=== PATIENT | female | born 1970 | race Caucasian/White ===

== ENCOUNTER 2022-05-03 08:09 | Outpatient (CLI) | payer OTHER, SELFPAY ==
--- NOTE | 2022-05-03 08:15 | CRLHL7_ITS ---
For Patients: As a result of the Century Cures Act, medical imaging exams and procedure reports are released immediately into your electronic medical record. You may view this report before your referring provider. If you have questions, please contact your health care provider. Technique: Double-contrast esophagram performed after the uneventful administration of effervescent crystals and thick barium followed by thin barium. Fluoroscopy time 57 seconds. Indication: Eosinophilic esophagitis Comparison: None. Findings: A small sliding hiatal hernia is present with spontaneous reflux to the midesophagus. No stricture or ulcer. Normal swallowing mechanism. Normal motility. There is the faint suggestion of slight concentric ring formation within the esophageal mucosa corresponding to the patient`s history of eosinophilic esophagitis. Impression: Small sliding hiatal hernia with spontaneous reflux. Faint suggestion of mild eosinophilic esophagitis corresponding to the known history. Dictated by Burke Ivy MD @ 05/03/2022 10:55:47 AM (Electronically Signed)
== END 2022-05-03 08:10 | disposition home or self-care (01) ==
PROVIDERS: PCP Student in an Organized Health Care Education/Training Program; Visit Provider Student in an Organized Health Care Education/Training Program
DX: K20.0 Eosinophilic esophagitis (principal); K44.9 Diaphragmatic hernia without obstruction or gangrene
CPT/HCPCS: 74221

== ENCOUNTER 2022-05-09 09:04 | Outpatient (CLI) | payer OTHER, SELFPAY ==
--- NOTE | 2022-05-09 09:15 | CRLHL7_ITS ---
For Patients: As a result of the Century Cures Act, medical imaging exams and procedure reports are released immediately into your electronic medical record. You may view this report before your referring provider. If you have questions, please contact your health care provider. INDICATION: Eosinophilic esophagitis, dysphagia TECHNIQUE: Modified barium swallow, fluoroscopic time 1 minute 7 seconds. COMPARISON: Esophagram 05/03/2022 FINDINGS/IMPRESSION: Anatomical structures are normal. Swallowing mechanism appears within normal limits. No episodes of penetration or aspiration. No significant findings. Dictated by Burke Ivy MD @ 05/09/2022 11:10:59 AM (Electronically Signed)
== END 2022-05-09 09:05 | disposition home or self-care (01) ==
LOC: RAD 09:04
PROVIDERS: PCP Student in an Organized Health Care Education/Training Program; Visit Provider Student in an Organized Health Care Education/Training Program
DX: R13.10 Dysphagia, unspecified (principal); K20.0 Eosinophilic esophagitis
CPT/HCPCS: 74230; 92611

== ENCOUNTER 2024-04-17 16:35 | Emergency (ER) | payer OTHER, SELFPAY ==
--- OUTSIDE RECORDS SUMMARY | 2024-04-17 16:38 | XMS_ITS | Continuity of Care Document ---
Author Organization [facility] Address [address] [facility] [address] [place] [id number] Phone Care Team Providers Care Lock Plater Name Role Phone KETAN ESPOSITO MD Unavailable Unavailable Allergies, Adverse Reactions, Alerts Substance Reaction Status Criticality No Known Allergies Active No Inform ation Medications Medication Instructions Dosage Effective Dates (start - stop) Status Comments Synthroid 100 mcg tablet take 1 tablet by oral route every day 100 MCG - Active 28 mg iron-800 mcg tablet - Active Procedures Procedure Date EXCISION OF CHALAZION-SINGLE FOCUSED NEW PATIENT Advance Directives Directive Yes / No Effective Date File Name No Information Encounters Encounter Description Practice Location Reason(s) For Visit Diagnoses Date Provider Providers Copied on Encounter [facility], [address], [id number], [place] tel:[phone] [facility] No Information [facility]. [address] [place] [address] [place] [address], [id number] . tel:[phone] Referring Provider: KETAN Owens MD, [address] [place] [address] [place] [address], [id number] . tel:[phone] FOCUSED NEW PATIENT [facility], [address], [id number], tel:[phone] [facility] a consultation (chief complaint) Chalazion left lower eyelid [facility]. [address] [facility], [address], [place], [place], [id number] . tel:[phone] Referring Provider: TOMY FRANCIS MD, [address], [place], [address]. tel:[phone] Family History Family Member Type Diagnosis Age At Onset No Information Payers Payer name Insurance type Covered green party ID Authoriza tiedita(s) [facility] EXEMPT [id number] Social History Type Description Quantity Date Captured Comments Sex Female Smoking Status No Information Chief Complaint And Reason For Visit No Information Reason For Referral Reason For Referral No Information History Of Present Illness Encounter Date Complaint History Of Prese nt Illness a consultation The 45 year old female presents for a consultation, Hordeolum externum of LLL. Pt. is referred here by Dr. Condon, [facility], for a raised bump on LLL. She complains it has been there for over 4 months and has tried everything to get it to shrink. Pt. is concerned. Denies pain and discharge. Slight tenderness when touched. Pt. is 30 weeks . Functional Status Date Functional Assessmen t No Information Instructions Date Instruction Additional Infor mation No Information Assessments Type Assessment Date No Information Patient Care Teams Name Effective Dates (start - stop) Status Members No Information
--- OUTSIDE RECORDS SUMMARY | 2024-04-17 16:38 | XMS_ITS | Continuity of Care Document ---
Author Organization Replaced By [facility] Address [facility] [facility] [address] [place] [address] Phone Care Team Providers Care Technical Writer And Editor Name Role Phone [facility] Unavailable Suzanne vailable Procedures Procedure Date EXCISION OF CHALAZION-SINGLE Advance Directives Directive Yes / No Effective Date File Name No Information Encounters Encounter Description Practice Location Reason(s) For Visit Diagnoses Date Provider Providers Copied on Encounter Replaced By [facility] [place], [address] [place] [address] [place] [address], [id number], tel:[phone] Replaced By [facility] [place] No Information [facility]. [address] [place] [address], [address] [place] [address], [id number]. tel:[phone] Referring Provider: KETAN Owens MD, [address] [place] [address] [address] [place] [address], [id number]. tel:[phone] Family History Family Member Type Diagnosis Age At Onset No Information Payers Payer name Insurance type Covered democrat ID Authoriza ti(s) [facility] [facility] EXEMPT [id number] Social History Type Description Quantity Date Captured Comments Sex Female Smoking Status No Information Chief Complaint And Reason For Visit No Information Reason For Referral Reason For Referral No Information History Of Present Illness Encounter Date Complaint History Of Prese nt Illness No Information Functional Status Date Functional Assessmen t No Information Instructions Date Instruction Additional Infor mation No Information Assessments Type Assessment Date No Information Patient Care Teams Name Effective Dates (start - stop) Status Members No Information
--- OUTSIDE RECORDS SUMMARY | 2024-04-17 16:38 | XMS_ITS | Clinical Summary ---
Author Organization [employer] [facility] Address [address] [place] [address] Care Team Providers Care Supervisor Home Energy Consultant Name Role Phone Mica Parker DO Primary Care Provider [phone] Allergies No known active allergies Medications fluticasone (50 mcg per actuation) nasal solution (FLONASE)Indicat ions:Seasonal allergic rhinitis due to pollen,Nasal congestion Inhale 2 Sprays into both nostrils once daily. 1 Bottle 0 Active miscellaneous medical supply (Blood Pressure Cuff) miscIndications: Elevated BP without diagnosis of hypertension Home blood pressure monitor 1 Each 4 Active levothyroxine (SYNTHROID) 88 mcg tabletIndication s:Noemí's thyroiditis TAKE 1 TABLET DAILY 90 Tablet 2 4 Active pantoprazole (PROTONIX) 40 mg delayed-release tabletIndication s:Eosinophilic esophagitis,Clemencia roesophageal reflux disease, unspecified whether esophagitis present TAKE 1 TABLET DAILY 90 Tablet 3 4 Active Additional Information Patient taking differently:40 mg Oral DAILY,prn, Reported on 02/02/2024 Active Problems Problem Noted Date Diagnosed Date Pap smear of cervix with ASCUS, cannot exclude H GSIL 01/06/2024 Overview (02/11/2024): 09/2017 NIL/HPV negative Hx of ASCUS noted in 2021, unable to find further info At 2022 Pap flowsheet data: Abnormal Pap or Filer Bx in last 5 years No 11/2022 UNS/HPV negative 12/2023 ASC-H/HPV negative 01/2024 colp ECC negative. 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 Rx'd imitrex nasal spray 5mg at onset of BASHIR and may repeat once in 2 hours if needed. Max 40mg/day. Contact provider if more than 1 BASHIR per week and will do neuro consult. Other abnormalities in shape or position of gravid uterus and of neighboring structures, 06/19/2021 Raynaud's syndrome 06/19/2021 Disease due to severe acute respiratory syndrome coronavirus 2 (SARS-CoV-2) 11/06/2020 Hx of diabetes mellitus 10/17/2017 Eosinophilic esophagitis 06/20/2015 Hypothyroidism 09/10/2013 Abdominal pain, epigastric 09/10/2013 Overview (06/10/2018): Overview: mild discomfort Encounters Date Type Department Care Team Description 02/02/2024 10:50 AM DANCE ENTERTAINER Procedure Only [facility] [address] [place] [address] Mica Parker, Procedure (colposcopy) 02/02/2024 Travel 01/28/2024 Travel from Last 3 Months Immunizations Name Administration Dates Next Due Td (Age >=7 Years) 06/24/2013 Tdap 06/24/2013 Zoster (Shingrix-RZV, recombinant) 12/30/2023 Family History Medical History Relation Name Comments Fibromyalgia Daughter 5 Unknown Daughter 5 Cancer-prostate Father Mac Diabetes Father Mac Hypertension Father Mac Unknown Half-Sister 1 Unknown Half-Sister 2 Emphysema Mother yamile smoker Hypertension Mother yamile Thyroid Disease Sister 1 Rebekah-twin Good Health Sister 2 Kena Unknown Son 2 Cancer-breast No Family History Cancer-ovarian No Family History Relation Name Status Comments Daughter 5 Alive Father Mac (Age 59 ) prostate cancer Half-Sister 1 Half-Sister 2 Maternal Grandmother Alive Mother yamile Alive Sister 1 Rebekah-twin Alive Sister 2 Kena Alive Son 2 Alive Social History Tobacco Use Types Packs/Day Years Used Date Smoking Tobacco: Never Smokeless Tobacco: Never Tobacco Cessation:Counseling Given: Yes Alcohol Use Standard Drinks/Week Comments Not Currently 0 (1 standard drink = 0.6 oz pure alcohol) I have not alcohol in many years. PHQ-2 Answer Date Recorded PHQ-2 TOTAL SCORE 0 12/30/2023 Social Connections Answer Date Recorded Do you often feel lonely or isolated from those around you? 0 12/25/2023 Financial Resource Strain Answer Date R ecorded Difficulty of Paying Living Expenses 3 11/03/2023 Difficulty of Paying Living Expenses Not on file 11/03/2023 Food Insecurity Answer Date Recorded Do you worry your food will run out before you are able to buy more? 1 12/25/2023 Transportation Needs Answer Date Record ed Does lack of transportation keep you from medica l appointments? 1 12/25/2023 Does lack of transportation keep you from work, meetings or getting things that you need? 1 12/25/2023 Housing Stability Answer Date Recorded What is your housing situation today? 1 12/25/2023 Utilities Answer Date Recorded Do you have trouble paying f or utilities (for example, heat, electricity, water, phone)? 1 12/25/2023 Comments No Sex and Gender Information Value Date Recorded Sex Assigned at Not on file Legal Sex Female 8:51 PM DANCE ENTERTAINER Gender Identity Not on file Sexual Orientation Not on file Obstetrics History Para Term AB IAB SAB Ectopic Multiple Livin g Live Births 10 7 Date Outcome GA Total Labor Labor/2nd/3rd Weight Sex Type Anes PTL Jessika A1 A5 Name Clin Para Para Para Para Para Para Para Last Filed Vital Signs Vital Sign Reading Time Taken Comments Blood Pressure 149/87 02/02/2024 11:10 AM DANCE ENTERTAINER Pulse 64 02/02/2024 11:10 AM DANCE ENTERTAINER Temperature 36.7 C (98 F) 12/26/2023 10:15 AM CDT Respiratory Rate 14 10/01/2022 11:32 AM CDT Oxygen Saturation 98% 02/02/2024 11:10 AM DANCE ENTERTAINER Inhaled Oxygen Concentration - - Weight 78.9 kg (174 lb) 12/30/2023 10:28 AM DANCE ENTERTAINER Height 159 cm (5' 2.6) 12/30/2023 10:28 AM DANCE ENTERTAINER Body Mass Index 31.22 12/30/2023 10:28 AM DANCE ENTERTAINER Plan of Treatment Health Maintenance Due Date Last Done Comments Pneumococcal series for age 50+ (1 of 1 - PCV) 2022 Tetanus booster 06/25/2023 06/24/2013, 06/24/2013 COVID-19 vaccine series ( - season) 2023 Influenza for age 50-64 10/26/2023 Zoster (shingles) series for age 50+ (2 of 2) 02/24/2024 12/30/2023 Mammogram for age 45-75 07/13/2024 07/14/19 24, 05/20/2022, 05/17/2021, Additional history exists BMI (ht and wt on same day) for age 18+ 12/29/2024 12/30/2023, 12/02/2022, 11/02/2021, Additional history exists Depression screening for age 12+ 12/29/2024 12/30/2023, 11/03/2023, 08/25/2023, Additional history exists Pap test for age 21-65 02/01/2025 (Verified in Care Everywhere or Patient Record), 12/30/2023, 12/02/2022, Additional history exists Lipids for age 45-75 11/02/2028 11/03/2023, 03/06/2021, 08/06/2019, Additional history exists Colonoscopy through age 75 10/01/2029 10/01/2022, Tdap Completed 06/24/2013, 0502/2013 (Completed outside of [facility]) HIV for age 15-65 Completed 06/18/2022 Hepatitis C screening for ag e 18-79 Completed 06/18/2022 Procedures Procedure Name Priority Date/Time Associated Diagnosis Comments PATH TISSUE EXAM Routine 02/02/2024 11:4 0 AM DANCE ENTERTAINER Pap smear of cervix with ASCUS, cannot exclude HGSIL RESIDENTIAL SALES REPRESENTATIVE THIN PREP PAP AND HPV DNA - AGE 25 AND OVER ([facility]) Routine 12/30/2023 11:40 AM DANCE ENTERTAINER Pap smear for cervical cancer screening LIPID PANEL W REFLEX MEASURED LDL Routine 11/03/2023 3:08 PM CDT Lipid screening XR MAMMO JONH BILAT SCREEN Routine 07/14/2023 11:26 AM CDT Encounter for screening mammogram for malignant neoplasm of breast COLONOSCOPY SCREENING Routine 10/01/2022 10:12 AM CDT Screening for colon cancer LC HIV-1/O/2, 4TH GENERATION Routine 06/18/2022 10:10 AM CDT Screening for HIV (human immunodeficiency virus) LC HCV ANTIBODY RFX TO QUANT PCR Routine 06/18/2022 10:10 AM CDT Need for hepatitis C screening test from Last 3 Months or Most Recently Relevant to Health Maintenance Results * PATH TISSUE EXAM (02/02/2024 11:40 AM DANCE ENTERTAINER) Case Report Pathology Report Case: [id number] Authorizing Provider: Mica Parker DO Collected: 02/02/2024 1140 Ordering Location: [facility] Received: 02/02/2024 1354 Clinic Pathologist: Axel Spangler MD Specimen: Endocervical Curettings 02/09/2024 9:49 AM DANCE ENTERTAINER [facility] Final Diagnosis A) ENDOCERVIX, CURETTAGE: 1. Fragments of benign endocervical tissue 2. Negative for glandular neoplasia, squamous intraepithelial lesion, and malignancy 02/09/2024 9:49 AM DANCE ENTERTAINER [facility] Comment The preceding Pap smear diagnostic of ASC-H was interpreted at an outside facility and therefore unavailable for direct correlative review. 02/09/2024 9:49 AM DANCE ENTERTAINER [facility] Clinical Information ASC-H, HPV negative 02/09/2024 9:49 AM DANCE ENTERTAINER [facility] Gross Description A) Received in formalin, labeled with the patient's name and endocervical curettings, is a 1.2 x 0.9 x 0.4 cm aggregate of pink-raymond mucosa admixed with clotted blood and mucous. The specimen is entirely submitted in 1 cassette. TRS 02/05/2024 02/09/2024 9:49 AM DANCE ENTERTAINER [facility]- [facility] Microscopic Description The final diagnosis is based on microscopic examination of appropriate sections of all specimens. 02/09/2024 9:49 AM DANCE ENTERTAINER [facility] Additional Information Interpreted at [facility] - [address] [facility] [address] [address] 02/09/2024 9:49 AM DANCE ENTERTAINER [facility] Other (Endocervical Curettings) Non-Blood / Unknown 02/02/2024 11:40 AM DANCE ENTERTAINER 02/02/2024 1:54 PM DANCE ENTERTAINER Mica Parker DO PATHOLOGY/CYTOLOGY Final R esult [facility] [address] [place] [address], * (ABNORMAL) RESIDENTIAL SALES REPRESENTATIVE THIN PREP PAP AND HPV DNA - AGE 25 AND OVER ([facility]) (12/30/2023 11:40 AM DANCE ENTERTAINER) CLINICAL INFORMATION [facility] Comment:None given LMP [facility] Comment:12/17/23 PREV. PAP [facility] Comment:UNS -HPV 2022 PREV. BX [facility] Comment:NO SOURCE RESIDENTIAL SALES REPRESENTATIVE [facility] Comment:Cervix STATEMENT OF ADEQUACY [facility] Comment: Satisfactory for evaluation. Endocervical/transformation zone component present. GENERAL CATEGORIZATION (A) [facility] Comment:Cytology Results: Ep ithelial Cell Abnormality INTERPRETATION/RESU LT (A) [facility] Comment: Atypical Squamous Cells, cannot exclude High Grade Squamous Intraepithelial Lesion (ASC-H) COMMENT [facility] Comment: This Pap test has been evaluated with computer assisted technology. Consider colposcopy and cervical/endocervical sampling, as clinically indicated. DATA CENTER ENGINEER [facility] Comment: DMM, CT(ASCP) CT Screening Location: [address] PATHOLOGIST [facility] Comment: Naida Addison M.D. Board Certified in Anatomic Pathology, Clinical Pathology and Cytopathology [phone] (electronic signature) THINPREP TIS PAP ALWAYS MESSAGE [facility] Comment: EXPLANATORY NOTE: The Pap is a screening test for cervical cancer. It is not a diagnostic test and is subject to false negative and false positive results. It is most reliable when a satisfactory sample, regularly obtained, is submitted with relevant clinical findings and history, and when the Pap result is evaluated along with historic and current clinical information. HPV HIGH RISK Not Detected NOT DETECTED [facility] Comment: Not Detected High Risk HPV types (16,18,31,33,35,39,45,51,52, 56,58,59,66,68) were not detected. Other HPV types which cause anogenital lesions may be present. The significance of the other types of HPV in malignant processes has not been established. Methodology: Real Time PCR Other (Other) 12/30/2023 11: 40 AM DANCE ENTERTAINER 12/31/2023 5:15 AM DANCE ENTERTAINER Mica Parker DO PATHOLOGY/CYTOLOGY Final R esult [address] [address], [address] [address] * LIPID PANEL W REFLEX MEASURED LDL (11/03/2023 3:08 PM CDT) CHOLESTEROL,TOTAL 182 100 - 199 mg/dL 11/04/2023 5:39 AM CDT [facility] Comment: Cholesterol, Total Reference Ranges Desirable <200 mg/dL Borderline 200-239 mg/dL High >=240 mg/dL TRIGLYCERIDES 88 <150 mg/dL 11/04/2023 5:39 AM CDT [facility] HDL CHOLESTEROL 57 >40 mg/dL 5:39 AM CDT [facility] NON-HDL CHOLESTEROL 125 <145 mg/dl 11/04/2023 5:39 AM CDT [facility] CHOL/HDL RATIO 3.19 <4.50 11/04/2023 5:39 AM CDT [facility] LDL CHOLESTEROL 107 <=130 mg/dL 11/04/2023 5:39 AM CDT [facility] VLDL CHOLESTEROL 18 <=30 mg/dL 11/04/2023 5:39 AM CDT [facility] PROVIDER ORDERED STATUS RANDOM 11/04/2023 5:39 AM CDT [facility] Blood BLOOD SPECIMEN / Unknown Venipuncture / Unknown 11/03/2023 3:08 PM CDT 11/03/2023 3:08 PM CDT us Mica Parker DO CHEMISTRY Final [facility] [address] [place] [address], [place] * XR MAMMO JONH BILAT SCREEN (07/14/2023 11:26 AM CDT) Anatomical Region Laterality Modality BREASTS, Breast Left, Breast Right Bilateral Mammography Impressions 07/14/2023 4:04 PM CDT There is no radiographic evidence for malignancy. Recommend annual mammograms. MAMMOGRAM ASSESSMENT: ACR 1 Negative PATIENTS: You will also receive a letter with your examination results in an easy to read format. If you have questions about your results, please contact your referring provider. Narrative 07/14/2023 4:04 PM CDT For Patients: As a result of the 21st Century Cures Act, medical imaging exams and procedure reports are released immediately into your electronic medical record. You may view this report before your referring provider. If you have questions, please contact your health care provider. XR MAMMO JONH BILAT SCREEN [[id number]] CLINICAL HISTORY: This is an asymptomatic 52 y.o. patient. INDICATION FOR EXAM: Mammogram Screening. TECHNIQUE: CC & MLO views were obtained. This study was evaluated with the assistance of Computer-Aided Detection. Breast Tomosynthesis was used in interpretation. COMPARISON FILM: Yes 05/20/22 [facility] 05/17/21 [facility] FINDINGS: The breasts have scattered areas of fibroglandular density. There are no dominant masses, suspicious micro calcifications or areas of architectural distortion. us Mica Parker DO MAMMO Final Resu lt * COLONOSCOPY (10/01/2022 10:21 AM CDT) 10/01/2022 10:2 1 AM CDT Narrative Transcriptions Maximo Bonilla MD - 10/01/2022 11:20 AM CDT Patient Name: Mica Kenyon Procedure Date: 10/01/2022 Gender: Female Date of : 1970 Admit Type: Outpatient Procedure: Colonoscopy Proceduralist: Maximo Bonilla MD , Brittney Mcnulty (Nurse), Richa Valdes (Nurse) Indications/Pre-Op Diagnosis: Screening for colorectal malignant neoplasm, This is the patient's first colonoscopy Medications: Fentanyl 100 micrograms IV, Midazolam 4 mgIV, The level of sedation administered wasmoderate Procedure Description: The patient had risks, benefits and alternatives explained to andgave informed consent. The patient had a stable cardiopulmonary status and judged an adequate candidate for conscious sedation. The endoscope [id number]-[id number] was passed through the anus andadvanced to the cecum, identified by appendiceal orifice and ileocecal valve.The colonoscopy was performed without difficulty. The patient toleratedthe procedure well. The quality of the bowel preparation was good. The ileocecal valve, appendiceal orifice, and rectum were photographed. Complications: No immediate complications. Estimated Blood Loss & Specimen: Estimated blood loss: none. Specimen collected - Yes and sent to Laboratory Findings: The perianal and digital rectal examinations were normal. Two sessile polyps were found in the transverse colon. The polypswere 2 to 3 mm in size. These polyps were removed with a cold biopsyforceps. Resection and retrieval were complete. The exam was otherwise without abnormality. Impressions/Post-Op Diagnosis: - Two 2 to 3 mm polyps in the transverse colon, removed with a cold biopsy forceps. Resected and retrieved. - The examination was otherwise normal. Recommendation: - Patient has a contact number available for emergencies. The signsand symptoms of potential delayed complications were discussed with the patient. Return to normal activities tomorrow. Written discharge instructions were provided to the patient. - Resume previous diet. - Continue present medications. - Await pathology results. - Repeat colonoscopy for surveillance based on pathology results. Moderate Sedation: A time out was performed before the procedure. Moderate (conscious) sedation was administered by the endoscopy nurse and supervised bythe endoscopist. The following parameters were monitored: oxygensaturation, heart rate, blood pressure, EKG, CO2, respiratory rate, adequacy of pulmonary ventilation and reponse to care. Please refer to the patient's medical record flowsheets and nursing notes for moderate sedation details. Total physician intraservice time was 20 minutes. Maximo Bonilla MD 10/01/2022 11:20:17 AM This report has been signed electronically. Note Initiated On: 10/01/2022 10:21 AM Procedure Code(s): --- Professional --- 28794, Colonoscopy, flexible; with biopsy, single or multiple Diagnosis Code(s): --- Professional --- Z12.11, Encounter for screening formalignant neoplasm of colon D12.3, Benign neoplasm of transverse colon (hepatic flexure or splenic flexure) CPT copyright 2021 [employer]. All rights reserved. The codes documented in this report are preliminary and upon certified professional coder reviewmay be revised to meet current compliance requirements. Scope In: 10:55:53 AM Scope Withdrawal Time 0 hours 9 minutes 54 seconds Scope Out: 11:13:58 AM us Maximo Bonilla MD PROCEDURE ORD Final Res ult * LC HCV ANTIBODY RFX TO QUANT PCR (06/18/2022 10:10 AM CDT) HCV Ab Non Reactive Non Reactive 06/20/2022 10:[address] [facility] ([facility]) Blood BLOOD SPECIMEN / Unknown Venipuncture / Unknown 06/18/2022 10:10 AM CDT 06/18/2022 10:11 AM CDT [facility] ([facility]) - 06/20/2022 10:07 PM CDT Performed at: [address] [place] [id number] Vending Machine Technician: Santhosh Sprague MD, Phone: [phone] us Mica Parker DO LABORATORY Final Resu lt [facility] ([facility]) [address] [place] [id number], * LC HIV-1/O/2, 4TH GENERATION (06/18/2022 10:10 AM CDT) HIV Scr 4th Gen Non Reactive Non Reactive 06/20/2022 10:[address] [facility] ([facility]) Comment: HIV Negative HIV-1/HIV-2 antibodies and HIV-1 p24 antigen were NOT detected. There is no laboratory evidence of HIV infection. Blood BLOOD SPECIMEN / Unknown Venipuncture / Unknown 06/18/2022 10:10 AM CDT 06/18/2022 10:11 AM CDT [facility] ([facility]) - 06/20/2022 10:06 PM CDT Performed at: 01 - [facility] [id number] Vending Machine Technician: Santhosh Sprague MD, Phone: [phone] Mica Parker DO LABORATORY Final Resu lt [facility] ([facility]) [address] [place] [address], from Last 3 Months or Most Recently Relevant to Health Maintenance Advance Directives * Full Code (Latest Code Status on File) Date Activated Date Inactivated Comments 06/06/2015 8:03 AM 06/06/2015 10:43 AM Care Teams Supervisor Home Energy Consultant Relationship Specialty Start Date End Date Mica Parker DO [address] [place] [address] PCP - General Family Practice 12/20/21
[2024-04-17 16:48] VITALS: BP 143/86; PULSE 71; RESP 16; TEMP 36.3; O2SAT 96; BMI 32.0
--- NOTE | 2024-04-17 18:04 | CRLHL7_ITS ---
For Patients: As a result of the Cures Act, medical imaging exams and procedure reports are released immediately into your electronic medical record. You may view this report before your referring provider. If you have questions, please contact your health care provider. Indication: Trauma. Technique: Sacrum/coccyx, 3 views. Comparison: None. Findings/Impression: Bones: Alignment is normal. Subtle irregularity of the distal sacrum/proximal coccyx, likely age-indeterminate injury. Recommend correlation with point tenderness to exclude nondisplaced fracture. Otherwise, no displaced fractures or bone lesions. Joint spaces: Unremarkable. Soft tissues: Unremarkable. Dictated by Mykel Dawson MD @ 04/17/2024 6:34:22 PM (Electronically Signed)
--- NOTE | 2024-04-17 18:05 | ED.FALL ---
HPI - Fall General Chief Complaint: Fall/Minor Trauma Stated Complaint: fell from standing, hit tailbone Time Seen by Provider: 04/17/24 17:55 History of Present Illness HPI Narrative: This 53-year-old female comes in with an injury to her tailbone. She fell onto a cement landing and has pain at her tailbone. She is able to get up and ambulate. She does not report any other injury. She did not hit her head or have loss of consciousness. Related Data Home Medications ?Medication ?Instructions ?Recorded ?Confirmed levothyroxine 88 mcg tablet 88 mcg PO DAILY 02/23/23 02/23/23 Allergies Allergy/AdvReac Type Severity Reaction Status Date / Time No Known Drug Allergies Allergy Verified 02/23/23 09:27 Review of Systems Status of ROS: Reports: 10 or more systems reviewed and unremarkable except as noted in History and below Narrative: Constitutional: No fevers, no weight gain or loss. Eyes: No discharge. No vision changes. HENT: No congestion, no sore throat, no ear pain. Cardiovascular: No chest pain, no palpitations. Respiratory: No shortness of breath, no wheezes, no cough. Gastrointestinal: No abdominal pain, no vomiting, no diarrhea. Genitourinary: No dysuria, no hematuria. Musculoskeletal: Normal range of motion. Pain at the tailbone from a fall prior to arrival. Skin: No rashes, no pruritis. Neurological: No dizziness, weakness, sensory change, speech change. Endo/Heme/Allergies: No bruising or bleeding. No polydipsia. Pysch: no suicidality, no anxiety, no insomnia. All other systems reviewed and are negative. Exam Narrative: Exam Narrative: Constitutional: Well-developed, well-nourished, no acute distress. HEENT: Normocephalic, atraumatic. Neck: Normal range of motion. Nontender. Supple. Heart: Intact distal pulses. Lungs: No chest discomfort. No wheezes, rhonchi, or rales. Abdomen: Nontender. Back: Pain overlying the coccyx and tailbone. No external sign of injury. No bruising or swelling. Extremities: Normal range of motion. No injury. Skin: Intact. No rash. Warm. No erythema or pallor. Neurologic: No altered sensation. No weakness. Alert and oriented. Psychiatric: No suicidality. No anxiety or depression. No insomnia. Nursing notes and vitals signs are reviewed. Const: Vital Signs, click to edit/add: Vital Signs - 24 hr 04/17/24 16:48 Temperature 97.4 F L Pulse Rate [Pulse Oximeter] 71 Respiratory Rate 16 Blood Pressure [Ri ght Upper Arm] 143/86 H Pulse Oximetry 96 Oxygen Delivery Me thod Room Air Course Vital Signs Vital signs: Initial Vital Signs Temperature 97.4 F L 04/17/24 16:48 Temperature Source Temporal Artery Scan 04/17/24 16:48 Pulse Rate 71 04/17/24 16:48 Respiratory Rate 16 04/17/24 16:48 Blood Pressure 143/86 H 04/17/24 16:48 Blood Pressure Mean 105 04/17/24 16:48 Pulse Oximetry 96 04/17/24 16:48 Oxygen Delivery Method Room Air 04/17/24 16:48 Vital Signs Temperature 97.4 F L 04/17/24 16:48 Pulse Rate 71 04/17/24 16:48 Respiratory Rate 16 04/17/24 16:48 Blood Pressure 143/86 H 04/17/24 16:48 Pulse Oximetry 96 04/17/24 16:48 Oxygen Delivery Method Room Air 04/17/24 16:48 Temperature 97.4 F L 04/17/24 16:48 Pulse Rate 71 04/17/24 16:48 Respiratory Rate 16 04/17/24 16:48 Blood Pressure 143/86 H 04/17/24 16:48 Pulse Oximetry 96 04/17/24 16:48 Oxygen Delivery Method Room Air 04/17/24 16:48 MDM - Fall MDM Narrative Medical decision making narrative: This patient fell onto her tailbone on cement floor and comes in for evaluation. She does not have any bruising in this area but is tender over her coccyx and tailbone. X-ray imaging does not show any obvious fracture. The patient did receive an oral dose of Tylenol here and an [facility] prescription for Toradol. She is encouraged to increase activity as tolerated. Discharge Plan Discharge Clinical Impression: Coccyx contusion Patient Disposition: Home, Self-Care Condition: Stable Additional Instructions: Take medication as prescribed and needed. Increase activity as tolerated. Follow up with MD return if worsening. Prescriptions: No Action levothyroxine 88 mcg tablet 88 mcg PO DAILY Follow Up/Referrals: CINDI FERGUSON DO [Primary Care Provider] - Stand Alone Forms: MyHealth Info Instructions
--- OUTSIDE RECORDS SUMMARY | 2024-04-17 18:25 | XMS_ITS | Clinical Summary ---
Author Organization [employer] [facility] Address [address] [place] [address] Care Team Providers Care Photoengraving Helper Name Role Phone Mica Parker DO Primary Care Provider [phone] Allergies No known active allergies Medications fluticasone [...] 2022 Pap flowsheet data: Abnormal Pap or [place] Bx in last 5 years No 11/2022 [...] Department Care Team Description 02/02/2024 10:50 AM CNC LASER OPERATOR Procedure Only [facility] [address] [place] [address] Mica Parker, Procedure (colposcopy) 02/02/2024 Travel 01/28/2024 [...] on file Legal Sex Female 8:51 PM CNC LASER OPERATOR Gender Identity Not on file Sexual Orientation [...] Comments Blood Pressure 149/87 02/02/2024 11:10 AM CNC LASER OPERATOR Pulse 64 02/02/2024 11:10 AM CNC LASER OPERATOR Temperature 36.7 C (98 F) 12/26/2023 10:15 AM CDT Respiratory Rate 14 10/01/2022 11:32 AM CDT Oxygen Saturation 98% 02/02/2024 11:10 AM CNC LASER OPERATOR Inhaled Oxygen Concentration - - Weight 78.9 kg (174 lb) 12/30/2023 10:28 AM CNC LASER OPERATOR Height 159 cm (5' 2.6) 12/30/2023 10:28 AM CNC LASER OPERATOR Body Mass Index 31.22 12/30/2023 10:28 AM CNC LASER OPERATOR Plan of Treatment Health Maintenance Due Date [...] Tdap Completed 06/24/2013, 0502/2013 (Completed outside of [facility]) HIV for age 15-65 Completed 06/18/2022 Hepatitis C screening for ag e 18-79 Completed 06/18/2022 Procedures Procedure Name Priority Date/Time Associated Diagnosis Comments PATH TISSUE EXAM Routine 02/02/2024 11:4 0 AM CNC LASER OPERATOR Pap smear of cervix with ASCUS, cannot exclude HGSIL DEBEADER THIN PREP PAP AND HPV DNA - AGE 25 AND OVER ([facility]) Routine 12/30/2023 11:40 AM CNC LASER OPERATOR Pap smear for cervical cancer screening LIPID [...] * PATH TISSUE EXAM (02/02/2024 11:40 AM CNC LASER OPERATOR) Case Report Pathology Report Case: [id number] Authorizing Provider: iMca Parker DO Collected: 02/02/2024 1140 Ordering Location: [facility] Received: 02/02/2024 1354 Clinic Pathologist: Axel Spangler MD Specimen: Endocervical Curettings 02/09/2024 9:49 AM CNC LASER OPERATOR [facility] Final Diagnosis A) ENDOCERVIX, CURETTAGE: 1. Fragments of benign endocervical tissue 2. Negative for glandular neoplasia, squamous intraepithelial lesion, and malignancy 02/09/2024 9:49 AM CNC LASER OPERATOR [facility] Comment The preceding Pap smear diagnostic of ASC-H was interpreted at an outside facility and therefore unavailable for direct correlative review. 02/09/2024 9:49 AM CNC LASER OPERATOR [facility] Clinical Information ASC-H, HPV negative 02/09/2024 9:49 AM CNC LASER OPERATOR [facility] Gross Description A) Received in formalin, labeled with the patient's name and endocervical curettings, is a 1.2 x 0.9 x 0.4 cm aggregate of pink-raymond mucosa admixed with clotted blood and mucous. The specimen is entirely submitted in 1 cassette. TRS 02/05/2024 02/09/2024 9:49 AM CNC LASER OPERATOR [facility] Screen LABORATORY- [facility] Microscopic Description The final diagnosis is based on microscopic examination of appropriate sections of all specimens. 02/09/2024 9:49 AM CNC LASER OPERATOR [facility] Screen LABORATORY-[facility] Additional Information Interpreted at [facility] - [address] [facility] [address], [place] [address] 02/09/2024 9:49 AM CNC LASER OPERATOR [facility] Other (Endocervical Curettings) Non-Blood / Unknown 02/02/2024 11:40 AM CNC LASER OPERATOR 02/02/2024 1:54 PM CNC LASER OPERATOR Mica Parker DO PATHOLOGY/CYTOLOGY Final R esult [facility] [address] [place] [address], * (ABNORMAL) DEBEADER THIN PREP PAP AND HPV DNA - AGE 25 AND OVER ([facility]) (12/30/2023 11:40 AM CNC LASER OPERATOR) CLINICAL INFORMATION [facility] Comment:None given LMP [facility] Comment:12/17/23 PREV. PAP [facility] Comment:UNS -HPV 2022 PREV. BX [facility] Comment:NO SOURCE DEBEADER [facility] Comment:Cervix STATEMENT OF ADEQUACY [facility] Comment: Satisfactory for evaluation. Endocervical/transformation zone component present. GENERAL CATEGORIZATION (A) [facility] Comment:Cytology Results: Ep ithelial Cell Abnormality INTERPRETATION/RESU LT (A) [facility] Comment: Atypical Squamous Cells, cannot exclude High Grade Squamous Intraepithelial Lesion (ASC-H) COMMENT [facility] Comment: This Pap test has been evaluated with computer assisted technology. Consider colposcopy and cervical/endocervical sampling, as clinically indicated. BI MANAGER [facility] Comment: DMM, CT(ASCP) CT Screening Location: [address] PATHOLOGIST [facility] Comment: Naida Addison M.D. Board Certified in Anatomic Pathology, Clinical Pathology and Cytopathology [phone] (electronic signature) THINPREP TIS PAP ALWAYS MESSAGE [facility] Comment: EXPLANATORY NOTE: The Pap is a [...] HPV HIGH RISK Not Detected NOT DETECTED [facility] Comment: Not Detected High Risk HPV types (16,18,31,33,35,39,45,51,52, 56,58,59,66,68) were not detected. Other HPV types which cause anogenital lesions may be present. The significance of the other types of HPV in malignant processes has not been established. Methodology: Real Time PCR Other (Other) 12/30/2023 11: 40 AM CNC LASER OPERATOR 12/31/2023 5:15 AM CNC LASER OPERATOR Mica Parker DO PATHOLOGY/CYTOLOGY Final R esult [address] [address], [address] [address] * LIPID PANEL W REFLEX MEASURED LDL (11/03/2023 3:08 PM CDT) CHOLESTEROL,TOTAL 182 100 - 199 mg/dL 11/04/2023 5:39 AM CDT [facility] Comment: Cholesterol, Total Reference Ranges Desirable <200 mg/dL Borderline 200-239 mg/dL High >=240 mg/dL TRIGLYCERIDES 88 <150 mg/dL 11/04/2023 5:39 AM CDT [facility] HDL CHOLESTEROL 57 >40 mg/dL 5:39 AM CDT [facility] NON-HDL CHOLESTEROL 125 <145 mg/dl 11/04/2023 5:39 AM CDT [facility] CHOL/HDL RATIO 3.19 <4.50 11/04/2023 5:39 AM CDT [facility] LDL CHOLESTEROL 107 <=130 mg/dL 11/04/2023 5:39 AM CDT [facility] VLDL CHOLESTEROL 18 <=30 mg/dL 11/04/2023 5:39 AM CDT [facility] PROVIDER ORDERED STATUS RANDOM 11/04/2023 5:39 AM CDT [facility] Blood BLOOD SPECIMEN / Unknown Venipuncture / Unknown 11/03/2023 3:08 PM CDT 11/03/2023 3:08 PM CDT us Mica Parker DO CHEMISTRY Final Resu lt [facility] [address] [place] [address], [place] * XR MAMMO JONH BILAT SCREEN [...] care provider. XR MAMMO JONH BILAT SCREEN [[id number]] CLINICAL HISTORY: This is an asymptomatic 52 [...] candidate for conscious sedation. The endoscope [id number] was passed through the anus andadvanced to [...] 10:21 AM Procedure Code(s): --- Professional --- 96710, Colonoscopy, flexible; with biopsy, single or multiple Diagnosis Code(s): --- Professional --- Z12.11, Encounter for screening formalignant neoplasm of colon D12.3, Benign neoplasm of transverse colon (hepatic flexure or splenic flexure) CPT copyright 2021 [employer]. All rights reserved. The codes documented in this report are preliminary and upon sheet metal shop foreman reviewmay be revised to meet current compliance requirements. Scope In: 10:55:53 AM Scope Withdrawal Time 0 hours 9 minutes 54 seconds Scope Out: 11:13:58 AM us Maximo Bonilla MD PROCEDURE ORD Final Res ult * LC HCV ANTIBODY RFX TO QUANT PCR (06/18/2022 10:10 AM CDT) HCV Ab Non Reactive Non Reactive 06/20/2022 10:07 PM CDT [facility] ([facility]) Blood BLOOD SPECIMEN / Unknown Venipuncture / Unknown 06/18/2022 10:10 AM CDT 06/18/2022 10:11 AM CDT [facility]ERIC TESTING ([facility]) - 06/20/2022 10:07 PM CDT Performed at: [address] [place] [id number] Draw End Hand: Santhosh Sprague MD, Phone: [phone] us Mica Parker DO LABORATORY Final Resu lt [facility] ([facility]) [address] [place] [address], * LC HIV-1/O/2, 4TH GENERATION (06/18/2022 10:10 AM CDT) HIV Scr 4th Gen Non Reactive Non Reactive 06/20/2022 10:06 PM CDT [facility] ([facility]) Comment: HIV Negative HIV-1/HIV-2 antibodies and HIV-1 p24 antigen were NOT detected. There is no laboratory evidence of HIV infection. Blood BLOOD SPECIMEN / Unknown Venipuncture / Unknown 06/18/2022 10:10 AM CDT 06/18/2022 10:11 AM CDT [facility] ESOTERIC TESTING ([facility]) - 06/20/2022 10:06 PM CDT Performed at: 01 - [facility] [id number] Draw End Hand: Santhosh Sprague MD, Phone: [phone] Mica Parker DO LABORATORY Final Resu lt [facility] ([facility]) [address] [place] [address], from Last 3 Months or Most Recently Relevant to Health Maintenance Advance Directives * Full Code (Latest Code Status on File) Date Activated Date Inactivated Comments 06/06/2015 8:03 AM 06/06/2015 10:43 AM Care Teams Photoengraving Helper Relationship Specialty Start Date End Date Mica Parker DO [address] [place] [address] PCP - General Family Practice 12/20/21
--- OUTSIDE RECORDS SUMMARY | 2024-04-17 18:25 | XMS_ITS | Continuity of Care Document ---
Author Organization [facility] Address [address] [facility] [address] [place] [address] Phone Care Team Providers Care Landscape Architect Name Role Phone KETAN ESPOSITO MD Unavailable [...] Date Provider Providers Copied on Encounter [facility], [address], [id number], [place] tel:[phone] [facility] No Information [address] [facility] [place] [address] [place] [address], [id number] . tel:[phone] Referring Provider: KETAN Owens MD, [address] [place] [address] [place] [address], [id number] . tel:[phone] FOCUSED NEW PATIENT [facility], [address], [id number], tel:[phone] [facility] a consultation (chief complaint) Chalazion left lower eyelid [address] [facility], [address], [place], [place], [id number] . tel:[phone] Referring Provider: TOMY FRANCIS MD, [address], [place], [address]. tel:[phone] Family History Family Member Type Diagnosis Age At Onset No Information Payers Payer name Insurance type Covered libertarian ID Authoriza tiedita(s) [facility] EXEMPT [id number] Social History Type Description Quantity Date Captured [...] Pt. is referred here by Dr. Condon, [place], for a raised bump on LLL. [...]
--- OUTSIDE RECORDS SUMMARY | 2024-04-17 18:25 | XMS_ITS | Continuity of Care Document ---
Author Organization [facility] Address [facility] [facility] [address] [place] [address] Phone Care Team Providers Care Tool And Die Assembler Name Role Phone [facility] Unavailable Suzanne vailable Procedures Procedure Date EXCISION OF CHALAZION-SINGLE Advance Directives Directive Yes / No Effective Date File Name No Information Encounters Encounter Description Practice Location Reason(s) For Visit Diagnoses Date Provider Providers Copied on Encounter [facility], [address] [place] [address] [place] [address], [id number], tel:[phone] [facility] No Information [facility]. [address] [place] [address], [address] [place] [address], [id number]. tel:[phone] Referring Provider: KETAN Owens MD, [address] [place] [address] [address] [place] [address], [id number]. tel:[phone] Family History Family Member Type Diagnosis Age At Onset No Information Payers Payer name Insurance type Covered constitution party ID Authoriza ti(s) [facility] EXEMPT [id number] Social History Type Description Quantity Date Captured [...]
[2024-04-17] MEDS: ACETAMINOPHEN 500 MG TABLET 1000 MG PO (19:22)
== END 2024-04-17 19:49 | disposition home or self-care (01) ==
PROVIDERS: Emergency Provider Emergency Medicine Emergency Medical Services; PCP Student in an Organized Health Care Education/Training Program
DX: S30.0XXA Contusion of lower back and pelvis, initial encounter (principal); W19.XXXA Unspecified fall, initial encounter
CPT/HCPCS: 72220; 99283; 99284; A9270